=== PATIENT | female | born 1965 | race Caucasian/White ===

== ENCOUNTER 2021-09-10 13:06 | Emergency (ER) | payer BC ==
[2021-09-10] MEDS ORDERED: Ondansetron 4 MG/2 ML SDV IVPUSH ONE (13:33)
[2021-09-10] MEDS ORDERED: Ketorolac 30 MG/ML SDV IVPUSH ONE (13:33)
[2021-09-10] MEDS ORDERED: Sodium Chloride 0.9% 1,000 ML IV ONE (13:36)
--- NOTE | 2021-09-10 13:43 | EDM.PDOC ---
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, worked yesterday, did not go in today no f/c/d, no dysuria Left Middle Flank Pain Score (Numeric/FACES): 6 - Related Data Allergies Allergy/AdvReac Type Severity Reaction Status Date / Time nickel [Nickel] Allergy Itching Verified 04/06/14 15:01 Home Meds: Home Meds Cyanocobalamin (Vitamin B-12) [Vitamin B-12] 1,000 mcg PO DAILY 09/10/21 [Histo ry] Ketorolac [Toradol] 10 mg PO QID #20 tab 09/10/21 [Rx] Ondansetron [Zofran ODT] 4 mg PO ASDIRECTED PRN 09/10/21 [History] Tamsulosin [Flomax] 0.4 mg PO BID #10 cap.er 09/10/21 [Rx] Tamsulosin [Tamsulosin 24 Hr] 0.4 mg PO ASDIRECTED PRN 09/10/21 [History] atorvaSTATin [Lipitor] 20 mg PO BEDTIME 09/10/21 [History] lisinopriL [Lisinopril] 10 mg PO DAILY 09/10/21 [History] oxyCODONE 5 mg PO ASDIRECTED PRN 09/10/21 [History] ED ROS GENERAL - Review of Systems Review Of Systems: See Below Constitutional: Reports: No Symptoms HEENT: Reports: No Symptoms Respiratory: Reports: No Symptoms Cardiovascular: Reports: No Symptoms Endocrine: Reports: No Symptoms GI/Abdominal: Reports: Nausea. Denies: Constipation, Diarrhea : Reports: No Symptoms Musculoskeletal: Reports: Back Pain Skin: Reports: No Symptoms Neurological: Reports: No Symptoms Psychiatric: Reports: No Symptoms Hematologic/Lymphatic: Reports: No Symptoms Immunologic: Reports: No Symptoms ED EXAM, GI/ABD - Physical Exam Exam: See Below Exam Limited By: No Limitations General Appearance: Alert, WD/WN, Other (sit on chair, appears mildly uncomfortable, indicated pain at left lower back at iliac crest) Nose: Normal Inspection Throat/Mouth: Normal Inspection, Normal Voice, No Airway Compromise Head: Atraumatic, Normocephalic Neck: Normal Inspection, Supple, Non-Tender, Full Range of Motion. No: Lymphadenopathy (R), Lymphadenopathy (L) Respiratory/Chest: No Respiratory Distress, Lungs Clear, Normal Breath Sounds, No Accessory Muscle Use Cardiovascular: Regular Rate, Rhythm, No Edema GI/Abdominal Exam: Normal Bowel Sounds, Soft, Non-Tender, Other (NT throughout to deep palp, back no CVAT) Back Exam: Normal Inspection, Full Range of Motion. No: CVA Tenderness (R), CVA Tenderness (L) Extremities: Normal Inspection, Normal Range of Motion, Non-Tender Neurological: Alert, Oriented, CN II-XII Intact, Normal Cognition Psychiatric: Normal Affect, Normal Mood Skin Exam: Warm, Dry, Intact, Normal Color, No Rash Lymphatic: No Adenopathy Course - Vital Signs Last Recorded V/S: Last Vital Signs Temp 37.8 C 09/10/21 14:23 Pulse 73 09/10/21 14:23 Resp 15 09/10/21 14:23 BP 148/79 H 09/10/21 14:23 Pulse Ox 97 09/10/21 14:23 - Orders/Labs/Meds Orders: Active Orders 24 hr Category Date Time Status Abdomen Pelvis wo Cont [CT] Stat Exams 09/10/21 13:37 Taken Labs: Laboratory Tests 09/10/21 09/10/21 09/10/21 Range/Units 13:35 13:45 13:45 WBC 10.0 (3.0-10.3) x10-3/uL RBC 4.06 (3.60-5.20) x10(6)uL Hgb 12.0 (11.4-15.5) g/dL Hct 36.5 (34.2-48.2) % MCV 89.8 (76.7-100.5) fL MCH 29.6 (23.9-33.9) pg MCHC 33.0 (31.9-34.8) g/dL RDW 13.1 (12.3-16.5) % Plt Count 293 (151-488) x10(3)uL MPV 8.4 (7.1-12.4) fL Neut % (Auto) 79.5 H (30.8-76.2) % Lymph % (Auto) 11.9 L (18.4-52.1) % [place] % (Auto) 7.9 (4.4-15.7) % Eos % (Auto) 0.2 L (0.6-8.1) % Baso % (Auto) 0.5 (0.2-1.5) % Neut # (Auto) 7.9 H (1.5-6.3) x10-3/uL Lymph # (Auto) 1.2 (1.0-4.4) x10-3/uL Whitley # (Auto) 0.8 (0.3-1.0) x10-3/uL Eos # (Auto) 0.0 (0.0-0.8) x10-3/uL Baso # (Auto) 0.0 (0.0-0.1) x10-3/uL Sodium 140 (135-145) mmol/L Potassium 3.8 (3.5-5.3) mmol/L Chloride 103 (100-110) mmol/L Carbon Dioxide 29 (21-32) mmol/L BUN 15 (7-18) mg/dL Creatinine 1.2 H (0.55-1.02) mg/dL Est Cr Clr Drug Dosing 45.20 mL/min Estimated GFR (MDRD) 46 L (>60) BUN/Creatinine Ratio 12.5 (9-20) Glucose 130 H (80-116) mg/dL Calcium 9.1 (8.6-10.2) mg/dL Total Bilirubin 0.5 (0.1-1.3) mg/dL AST 22 (5-25) IU/L ALT 20 (12-36) U/L Alkaline Phosphatase 123 H (56-112) IU/L C-Reactive Protein (0.5-0.9) mg/dL Total Protein 7.3 (6.0-8.0) g/dL Albumin 3.8 (3.5-5.2) g/dL Globulin 3.5 g/dL Albumin/Globulin Ratio 1.1 Urine Color Yellow (YELLOW) Urine Appearance Clear (CLEAR) Urine pH 6.0 (5.0-6.5) Ur Specific [place] 1.015 (1.010-1.025) Urine Protein Negative (NEGATIVE) mg/dL Urine Glucose (UA) Normal (NORMAL) mg/dL Urine Ketones Negative (NEGATIVE) mg/dL Urine Occult Blood Negative (NEGATIVE) Urine Nitrite Negative (NEGATIVE) Urine Bilirubin Negative (NEGATIVE) Urine Urobilinogen Normal (NEGATIVE) mg/dL Ur Leukocyte Esterase Negative (NEGATIVE) Urine RBC 0-5 (0-5) Urine WBC 0-5 (0-5) Ur Squamous Epith Cells Few H (NS,R,O) Urine Bacteria Few H (NS) Urine Mucus Few H (NS) 09/10/21 Range/Units 13:45 WBC (3.0-10.3) x10-3/uL RBC (3.60-5.20) x10(6)uL Hgb (11.4-15.5) g/dL Hct (34.2-48.2) % MCV (76.7-100.5) fL MCH (23.9-33.9) pg MCHC (31.9-34.8) g/dL RDW (12.3-16.5) % Plt Count (151-488) x10(3)uL MPV (7.1-12.4) fL Neut % (Auto) (30.8-76.2) % Lymph % (Auto) (18.4-52.1) % [place] % (Auto) (4.4-15.7) % Eos % (Auto) (0.6-8.1) % Baso % (Auto) (0.2-1.5) % Neut # (Auto) (1.5-6.3) x10-3/uL Lymph # (Auto) (1.0-4.4) x10-3/uL [place] # (Auto) (0.3-1.0) x10-3/uL Eos # (Auto) (0.0-0.8) x10-3/uL Baso # (Auto) (0.0-0.1) x10-3/uL Sodium (135-145) mmol/L Potassium (3.5-5.3) mmol/L Chloride (100-110) mmol/L Carbon Dioxide (21-32) mmol/L BUN (7-18) mg/dL Creatinine (0.55-1.02) mg/dL Est Cr Clr Drug Dosing mL/min Estimated GFR (MDRD) (>60) BUN/Creatinine Ratio (9-20) Glucose (80-116) mg/dL Calcium (8.6-10.2) mg/dL Total Bilirubin (0.1-1.3) mg/dL AST (5-25) IU/L ALT (12-36) U/L Alkaline Phosphatase (56-112) IU/L C-Reactive Protein < 0.2 L (0.5-0.9) mg/dL Total Protein (6.0-8.0) g/dL Albumin (3.5-5.2) g/dL Globulin g/dL Albumin/Globulin Ratio Urine Color (YELLOW) Urine Appearance (CLEAR) Urine pH (5.0-6.5) Ur Specific [place] (1.010-1.025) Urine Protein (NEGATIVE) mg/dL Urine Glucose (UA) (NORMAL) mg/dL Urine Ketones (NEGATIVE) mg/dL Urine Occult Blood (NEGATIVE) Urine Nitrite (NEGATIVE) Urine Bilirubin (NEGATIVE) Urine Urobilinogen (NEGATIVE) mg/dL Ur Leukocyte Esterase (NEGATIVE) Urine RBC (0-5) Urine WBC (0-5) Ur Squamous Epith Cells (NS,R,O) Urine Bacteria (NS) Urine Mucus (NS) Meds: Medications Discontinued Medications Generic Name Dose Route Start Last Admin Trade Name Freq PRN Reason Stop Dose Admin Sodium Chloride 1,000 mls @ 999 mls/hr 09/10/21 13:36 09/10/21 13:49 Normal Saline IV 09/10/21 14:36 999 mls/hr .BOLUS ONE Administration Ketorolac Tromethamine 30 mg 09/10/21 13:33 09/10/21 13:52 Ketorolac 30 Mg/Ml Sdv IVPUSH 09/10/21 13:34 30 mg ONETIME ONE Administration Ondansetron HCl 4 mg 09/10/21 13:33 09/10/21 13:52 Ondansetron 4 Mg/2 Ml Sdv IVPUSH 09/10/21 13:34 4 mg ONETIME ONE Administration - Re-Assessments/Exams Free Text/Narrative Re-Assessment/Exam: 09/10/21 16:29 CT abd/pelvis without contrast shows a 7.5 mm left UPJ no evidence of infection, there is a mild increase in creat 1.2, baseline unknown CT says obstruction but amount of hydro not quantified pt give copy of CT report pt pain free now she last saw urology 5y ago she also passed some smaller stones 2d ago at home Departure - Departure Time of Disposition: 16:23 Disposition: Home, Self-Care 01 Clinical Impression: Renal colic on left side, Ureteral stone with hydronephrosis, Elevated serum creatinine - Discharge Information *PRESCRIPTION DRUG MONITORING PROGRAM REVIEWED*: Not Applicable *COPY OF PRESCRIPTION DRUG MONITORING REPORT IN PATIENT ROSANNE: Not Applicable Prescriptions: Tamsulosin [Flomax] 0.4 mg PO BID #10 cap.er Ketorolac [Toradol] 10 mg PO QID #20 tab Instructions: Renal Colic, Kidney Stones, Hydronephrosis Referrals: Gianna Landeros ORTHODONTIC LAB TECHNICIAN [Primary Care Provider] - Forms: ED Department Discharge Additional Instructions: For pain and to relax ureter, take ketorolac 10 mg 1 tab 4 times a day for 5 days or until stone passes. To relax ureter, take tamsulosin 0.4 mg 1 tab 2 times a day until stone passes. For pain, use moist heat in tub or shower for 15 minutes several times a day as needed. If you have pain that is not controlled at home, return to Emergency Department. See Ingrid Landeros in 3 days for further recommendations before the weekend. Screen your urine and save the stone. Sepsis Event Note (ED) - Focused Exam Vital Signs: Vital Signs Temp Pulse Resp BP Pulse Ox 09/10/21 14:23 37.8 C 73 15 148/79 H 97 09/10/21 13:21 38.1 C 83 16 160/96 H 96 - My Orders Last 24 Hours: My Active Orders 09/10/21 13:37 Abdomen Pelvis wo Cont [CT] Stat - Assessment/Plan Last 24 Hours: My Active Orders 09/10/21 13:37 Abdomen Pelvis wo Cont [CT] Stat
== END 2021-09-10 16:37 | disposition home or self-care (01) ==
LOC: FB.ED 13:06
DX: N13.2 Hydronephrosis with renal and ureteral calculous obstruction (principal); R79.89 Other specified abnormal findings of blood chemistry; Z91.048 Other nonmedicinal substance allergy status; Z79.899 Other long term (current) drug therapy
CPT/HCPCS: 36415; 74176; 80053; 81001; 85025; 86140; 96374; 96375; 99284; J1885; J2405; J7030